=== PATIENT | male | born 1995 | race Two or more races ===

== ENCOUNTER 2025-03-07 17:49 | Emergency (ER) | payer BC, OTHER ==
[~2025-03-07] VITALS: Ht 182.9 cm; Wt 86.3 kg
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
[2025-03-07] MEDS ORDERED: IBUP-1455 PO (19:40)
[2025-03-07 20:05] VITALS: BP 134/85; PULSE 57; RESP 16; TEMP 98; O2SAT 97
== END 2025-03-07 20:05 | disposition home or self-care (01) ==
LOC: ER 17:52
DX: S00.83XA Contusion of other part of head, initial encounter (principal); V89.2XXA Person injured in unspecified motor-vehicle accident, traffic, initial encounter; Y93.89 Activity, other specified; Y92.488 Other paved roadways as the place of occurrence of the external cause; Y99.8 Other external cause status
CPT/HCPCS: 70450